=== PATIENT | female | born 1970 | race Caucasian/White ===

== ENCOUNTER 2022-08-24 09:24 | Day surgery (SDC) | payer OTHER ==
[2022-08-19 14:31] VITALS: BMI 25.7
[2022-08-24 11:25] VITALS: TEMP 98.1
[2022-08-24 11:42] VITALS: BP 104/66; PULSE 59; RESP 15
== END 2022-08-24 11:53 | disposition home or self-care (01) ==
LOC: FASU-ENDO 09:24
PROVIDERS: ATTEND Internal Medicine Gastroenterology
PROC: 0DJD8ZZ Inspection of Lower Intestinal Tract, Via Natural or Artificial Opening Endoscopic (ICD-10-PCS; principal; 2022-08-24 10:47)
DX: Z12.11 Encounter for screening for malignant neoplasm of colon (principal); Z83.71 Family history of colonic polyps